=== PATIENT | female | born 1950 | race Caucasian/White ===

== ENCOUNTER → 2025-02-01 | Outpatient (CLI) | payer MEDICARE ==
--- NOTE | 2025-02-02 22:04 | HMCSR ---
APPROVED REPORT Bilateral Lower Extremity Venous Study for DVT., Venous Competence. Indications I87.1, I87.2 Vein Imaging CFV (R): Normal flow, augmentation and compression. No evidence of DVT. 11.0mm 1189ms of reflux. SFJ (R): Normal flow, augmentation and compression. No evidence of DVT. FEM (R): Normal flow, augmentation and compression. No evidence of DVT. POP (R): Normal flow, augmentation and compression. No evidence of DVT. DFV (R): Normal flow, augmentation and compression. No evidence of DVT. PTV (R): Normal flow, augmentation and compression. No evidence of DVT. Peroneals (R): Normal flow, augmentation and compression. No evidence of DVT. CFV (L): Normal flow, augmentation and compression. No evidence of DVT. 7.4mm 100ms of reflux. SFJ (L): Normal flow, augmentation and compression. No evidence of DVT. FEM (L): Normal flow, augmentation and compression. No evidence of DVT. POP (L): Normal flow, augmentation and compression. No evidence of DVT. DFV (L): Normal flow, augmentation and compression. No evidence of DVT. PTV (L): Normal flow, augmentation and compression. No evidence of DVT. Peroneals (L): Normal flow, augmentation and compression. No evidence of DVT. Technologist Impression Deep veins of bilateral lower extremities appear patent and compressible without thrombus. Deep vein reflux seen in the RCFV No superficial venous insufficiency seen at this time. RGSV junction 2.8mm 294ms thigh 2.4mm 0.0ms knee 1.5mm 0.0ms calf 1.5mm 0.0ms RSSV Prox 2.5mm 0.0ms Mid 1.9mm 0.0ms LGSV junction 3.8mm 0.0ms thigh 2.0mm 0.0ms knee 1.6mm 0.0ms calf 1.5mm 0.0ms LSSV Prox 1.3mm 0.0ms Mid 1.4mm 0.0ms Conclusion Deep vein reflux seen in the RCFV No DVT Conclusion Deep vein reflux seen in the RCFV No DVT
--- NOTE | 2025-02-02 22:05 | HMCSR ---
APPROVED REPORT Laterality: Bilateral Indications I87.1, I87.2 VELOCITY AND DOPPLER WAVEFORM ANALYSIS TRANSFER PUMPER (R) 161.5cm/sec, Triphasic, TRANSFER PUMPER (L) 127.3cm/sec, Triphasic, Prof Fem Art. (R) 63.7cm/sec, Biphasic, Prof Fem Art. (L) 74.2cm/sec, Biphasic, Fem Art Prox. (R) 84.3cm/sec, Triphasic, Fem Art Prox. (L) 96.1cm/sec, Biphasic, Fem Art Mid. (R) 88.8cm/sec, Triphasic, Fem Art Mid. (L) 98.4cm/sec, Biphasic, Fem Art Dist (R) 74.5cm/sec, Triphasic, Fem Art Dist. (L) 76.7cm/sec, Biphasic, Pop Art(AK) (R) 58.7cm/sec, Triphasic, Pop Art (AK) (L) 88.1cm/sec, Biphasic, Pop Art (Fossa)(R) 63.6cm/sec, Triphasic, Pop Art (Fossa) (L) 82.4cm/sec, Biphasic, Pop Art(BK) (R) 96.6cm/sec, Triphasic, Pop Art (BK) (L) 79.1cm/sec, Biphasic, CONTINUOUS PROCESS COFFEE ROASTER Dist. (R) 63.6cm/sec, Biphasic, CONTINUOUS PROCESS COFFEE ROASTER Dist. (L) 68.5cm/sec, Biphasic, Per Art Dist. (R) 33.4cm/sec, Biphasic, Per Art Dist. (L) 41.3cm/sec, Biphasic, VISHAL Dist. (R) 49.9cm/sec, Biphasic, VISHAL Dist. (L) 55.5cm/sec, Biphasic, Technologist Impression No evidence of significant arterial insufficiency of bilateral lower extremities. Multiphasic waveforms seen in bilateral lower extremities. Conclusion No evidence of significant arterial insufficiency of bilateral lower extremities. Conclusion No evidence of significant arterial insufficiency of bilateral lower extremities.
== END | disposition home or self-care (01) ==
LOC: SHCH 12:24
PROVIDERS: ATTEND Internal Medicine Cardiovascular Disease
DX: I73.9 Peripheral vascular disease, unspecified (principal); I87.2 Venous insufficiency (chronic) (peripheral); I87.1 Compression of vein; M47.814 Spondylosis without myelopathy or radiculopathy, thoracic region
CPT/HCPCS: 93925; 93970

== ENCOUNTER → 2025-03-15 | Outpatient (CLI) | payer MEDICARE ==
[2025-03-15 12:09] LABS: CREATININE 0.6 mg/dL (0.5-1.0); POTASSIUM 4.6 mmol/L (3.5-5.1)
== END | disposition home or self-care (01) ==
LOC: LAB 10:27
PROVIDERS: ATTEND Internal Medicine Cardiovascular Disease
DX: Z01.812 Encounter for preprocedural laboratory examination (principal); R53.83 Other fatigue
CPT/HCPCS: 36415; 80048

== ENCOUNTER → 2025-03-21 | Outpatient (CLI) | payer MEDICARE ==
[~2025-03-21] MED LIST: IOHEXOL 350 MG/ML 100ML INFUS..BTL IV ONE
--- NOTE | 2025-03-21 10:41 | HMCIMG ---
CT OF THE CHEST WITH CONTRAST- CT Cardiac Angio co-interpretation This is done as part of the CT cardiac angiogram study. The interpretation of the coronary arteries will be done by front attendant in a separate report. History: over-read Comparison: none CT Dose Index (CTDI): 77.90 mGy Dose Length Product (DLP): 493.40 total mGy PROTOCOL: Examination is done at 2.5 millimeter volumetric acquisition after contrast administration with Isovue 370, 100 cc IV, without complications. Photography is done at 5 millimeter thick intervals for the thorax. The examination begins above the heart and therefore the lung apices are incompletely included. The rest of the left lung is included but the right lung is only included up to its middle third. The periphery of the right lung is not included in the study. FINDINGS: The visualized part of the airway is preserved. The bony and soft tissue structures of the chest wall are unremarkable. The aorta is unremarkable. No mediastinal lymphadenopathy is seen. The lung windows demonstrate no worrisome pulmonary nodules, masses or infiltrates. There is no evidence of pulmonary embolism in the visualized lung segments. The upper abdominal views are unremarkable. Impression: No significant abnormalities identified.
--- NOTE | 2025-04-01 07:58 | CARDIOLOGY ---
RAD REPORT: CORNARY CT ANGIO RADIOLOGY REPORT: CORONARY CT ANGIOGRAPHY DATE: April 01, 2025 QUALITY: Excellent CLINICAL HISTORY AND INDICATION: [At risk for CAD ] TECHNIQUE: After obtaining a preliminary esl tutor image, contrast imaging performed on an Aquillon [id number] scanner. A dedicated, limited window, coronary imaging protocol was used, with single breath-hold, retrospective ECG gating, and automated arrhythmia rejection. 100 cc of low osmolar contrast agent: Omnipaque 350 was delivered via a 18-gauge IV catheter in the right antecubital fossa, using a power injector and followed by 60 cc of normal saline bolus as a chaser. Collimated images were reformatted at 0.5 mm intervals, and sent to an offline independent workstation for interpretation, using 3D anatomic reconstructions: Curved multiplanar reconstructions, maximum intensity projections, and multiplanar imaging. No metoprolol was administered prior to scanning due to low baseline heart rate. 0.8 mg SL nitroglycerin was given. CORONARY ARTERY DESCRIPTIONS: The coronary arteries arise in normal position. Left main coronary artery: Normal caliber vessel that bifurcates into the LAD and LCx. No stenosis. Left anterior descending coronary artery: Normal caliber vessel and gives rise to diagonal and septal branches. There is a high risk plaque in the ostial/proximal LAD with positive remodeling and spotty calcification with 50% stenosis. Left circumflex coronary artery: Normal caliber, nondominant and gives rise to a large OM branch. No stenosis. Right coronary artery: Large, dominant vessel giving rise to the PL and PDA branches. No stenosis. CAD-RADs: 3 (moderate stenosis); HRP (high risk plaque), recommend aggressive lipid lowering therapy. Consider functional assessment (PET vs stress vs invasive FFR). Thoracic Aorta: Normal diameter. Ksenia Fleming MD Cardiovascular Disease [facility] KSENIA FLEMING MD April 01, 2025 07:58
== END | disposition home or self-care (01) ==
LOC: RAH 09:02
PROVIDERS: ATTEND Internal Medicine Cardiovascular Disease
DX: I25.10 Atherosclerotic heart disease of native coronary artery without angina pectoris (principal); R07.9 Chest pain, unspecified; R94.31 Abnormal electrocardiogram [ECG] [EKG]
CPT/HCPCS: 75574; Q9967

== ENCOUNTER 2025-05-05 06:53 | Day surgery (SDC) | payer MEDICARE ==
[2025-05-03 09:59] VITALS: BP 175/70; PULSE 73; RESP 17; TEMP 97.9
[2025-05-03 10:07] LABS: BASOPHILS # (AUTO) 0.06 K/uL (0.00-0.20); BASOPHILS % (AUTO) 0.8 % (0.0-5.0); EOSINOPHILS # (AUTO) 0.03 K/uL (0.00-0.70); EOSINOPHILS % (AUTO) 0.4 % (0.0-8.0); HEMATOCRIT 44.7 % (36-48); IMMATURE GRANULOCYTE ABSOLUTE 0.02 K/uL (0-1); LYMPHOCYTES # (AUTO) 1.9 K/uL (1.0-4.8); LYMPHOCYTES % (AUTO) 27.3 % (21.0-51.0); MEAN CORPUSCULAR HEMOGLOBIN 29.8 pg (27.0-33.0); MEAN CORPUSCULAR VOLUME 87.6 fL (79-99); MONOCYTES # (AUTO) 0.6 K/uL (0.1-1.0); MONOCYTES % (AUTO) 8.6 % (3.0-13.0); NEUTROPHILS # (AUTO) 4.4 K/uL (1.8-7.7); NEUTROPHILS % (AUTO) 62.6 % (40.0-77.0); PLATELET COUNT (AUTO) 324 K/uL (130-400); RED CELL DISTRIBUTION WIDTH 14.4 % (11.0-15.5); WHITE BLOOD COUNT (AUTO) 7.1 K/uL (4.8-10.8)
--- NOTE | 2025-05-03 10:10 | EKG ---
[facility] Test Date: 2025-05-03 Test Time: 09:50:56 Pat Name: EUGENIA MAGALLANES Department: [facility] Room: [facility] Gender: F Log Handler: [id number] : 1950 Requested By: ELIE GOINS Order Number: [id number] Reading MD: Ksenia Fleming Measurements Intervals [place] Rate: 72 P: 30 DC: 140 QRS: 63 QRSD: 82 T: 37 QT: 402 QTc: 442 Interpretive Statements Sinus rhythm No previous ECG available for comparison Electronically Signed On 05-05-2025 15:05:20 CDT by Ksenia Fleming Please click the below link to view image of tracing.
[2025-05-03 10:17] LABS: CREATININE 0.6 mg/dL (0.5-1.0); POTASSIUM 4.8 mmol/L (3.5-5.1)
[2025-05-03 10:19] LABS: INR 1.01 (0.85-1.15); PROTHROMBIN TIME 10.7 SEC (9.6-11.6)
[2025-05-03 10:20] LABS: PARTIAL THROMBOPLASTIN TIME 27.9 SEC (26.3-35.5)
[2025-05-03 10:32] LABS: B-TYPE NATRIURETIC PEPTIDE 24 pg/mL (0-100)
--- NOTE | 2025-05-03 12:07 | HMCIMG ---
CHEST 1VW HISTORY: Preop COMPARISON: None FINDINGS: A frontal projection of the chest was obtained. No acute pulmonary infiltrates is seen. The heart is normal in size. Degenerative changes are seen. No evidence of aortic calcification is seen. IMPRESSION: 1. No acute pulmonary infiltrate is seen.
[~2025-05-05] VITALS: Ht 165.1 cm; Wt 54.4 kg
[2025-05-05] VITALS (9 sets, daily range): BP systolic 121–155; BP diastolic 71–85; PULSE 70–82; RESP 11–18; TEMP 97.2–97.7
[~2025-05-05 06:53] MED LIST changes: +BISO5TAB19 PO; +CLOP75TA32 PO; +CREATINE MONO PO; +DOXY25TA41 PO; -IOHEXOL 350 MG/ML 100ML INFUS..BTL IV ONE; +MAGNESIUM CHLORIDE PO; +VIT D3 PO
[2025-05-05] MEDS: 0.9%NACL 1000ML 1,000 ML IV SCH (07:22)
[2025-05-05] MEDS ORDERED: LIDOCAINE HCL 400MG/20ML VIAL ONE (08:32)
[2025-05-05] MEDS ORDERED: HEParin-NS 1,000 UNIT/500 ML 1,000 ML IV ONE (08:32)
[2025-05-05] MEDS ORDERED: HEParin 10,000 UNIT/10ML (1,000 UNIT/ML) VIAL ONE (08:32)
[2025-05-05] MEDS ORDERED: SODIUM BICARB 50MEQ 50ML VIAL 0 ML ONE (08:32)
[2025-05-05] MEDS ORDERED: niCARDIpine 25MG INJ IV ONE (08:32)
[2025-05-05] MEDS ORDERED: NITROGLYCERIN 50MG VIAL ONE (08:32)
[2025-05-05] MEDS ORDERED: FENTanyl CITRate PF 50 MCG/1 ML 2ML VIAL ONE (08:39)
[2025-05-05] MEDS ORDERED: MIDAZOLAM HCL 1 MG/ML 2ML VIAL ONE ×2 (08:39→09:21)
[2025-05-05] MEDS ORDERED: IOHEXOL 350 MG/ML 100ML INFUS..BTL IV ONE (08:55)
--- NOTE | 2025-05-05 09:37 | PRN ---
Left Heart Cath-[place] PROCEDURE: 1. Right common femoral arterial sheath placement. 2. Selective coronary angiogram. 3. Left heart catheterization. 4. Left ventriculogram. 5. Conscious sedation 6. Omni wire pressure assessment of questionable ostial LAD lesion 7. Angio-Seal for closure of arteriotomy site right common femoral artery INDICATIONS: Class [address] angiography with 50% plaque noted at ostial LAD DESCRIPTION OF PROCEDURE: The patient was brought to the catheterization suite and prepped and draped in sterile fashion. An IV was started, if not already in place and both groins were exposed for arterial access. 1% lidocaine was used for local anesthesia and then a micropuncture kit was used to gain access and once free-flowing blood was seen, modified Seldinger technique was utilized to place a 6 Upper Sorbian sheath into the right common femoral artery. Next, preformed JL4 and JR4 Catheters were then used to selectively engage the [place] coronary vessels and multiple hand contrast injections were performed in different views to define the coronary anatomy. Next, a 6 Upper Sorbian angled pigtail catheter was used to cross the aortic valve. Pressure measurements were obtained in the left ventriculogram was in the 30 MILAN position. Next, pullback method was performed. Secondary to abnormal coronary CT angiography and class 2 angina the lesion noted in the ostial LAD via the coronary CT angiogram described a very soft plaque present and it was felt further assessment should be done therefore a JL 3.5 guide catheter was then placed in the left coronary system. Next an Omni wire pressure system was then used and zeroed out and then assessments were made and ratios were noted to be at 0.99 hence a physiologically insignificant lesion. Next a sheath shot was performed after equipment was removed and an Angio-Seal was used for closure of arteriotomy site. No complications occurred. FINDINGS: The left main artery bifurcates into the LAD and left circumflex and is free of any significant disease. The left anterior descending artery has a lesion in the ostial segment she appears to be soft and a pressure wire assessment of this lesion revealed a ratio of 0.99 with the Omni wire. Diagonal branch system is free of significant disease. The left circumflex artery has no significant stenosis present. The obtuse marginal branch system is free of any significant disease. The right coronary artery is a dominant system giving rise to the PDA and RPL. There was no stenosis noted in the right coronary artery or its daughter vessels. LVEDP is normal There was no evidence of aortic stenosis or mitral regurgitation Omni wire pressure assessment revealed a ratio of 0.99. Ejection fraction is at 65%. ELIE ESPITIA MD May 05, 2025 09:37
[2025-05-05] MEDS ORDERED: DEXTROSE 50%-WATER 50 ML DISP.SYRIN IV PRN (10:00)
[2025-05-05] MEDS ORDERED: 0.9%NACL 1000ML 1,000 ML IV SCH (10:00)
[2025-05-05] MEDS ORDERED: GLUCAGON 1MG KIT 1 MG ML IM PRN (10:00)
--- NOTE | 2025-05-05 13:26 | NUR ---
Right Femoral site clean, dry and intact. No evidence of bleeding, bruising or hematoma. Pedal pulses intact. Ate 75% of lunch and has ambulated to bathroom and voided. Now sitting in bedside chair. Denies c/o pain or sob. SR remains with VS wnl. IV fuids infusing per orders to patent PIV. Daughter at bedside appearing supportive. Call light in reach. Reported off i full to CARIE Pagan
--- NOTE | 2025-05-05 13:55 | NUR ---
BOTH PT AND DAUGHTER GIVEN VERBAL AND WRITTEN DISCHARGE INSTRUCTIONS. IV REMOVED SITE ASYMPTOMATIC. PT TAKEN OUT VIA WHEELCHAIR DAUGHTER DRIVING
== END 2025-05-05 14:10 | disposition home or self-care (01) ==
LOC: DAH 06:53
PROVIDERS: ATTEND Internal Medicine Cardiovascular Disease
DX: R94.39 Abnormal result of other cardiovascular function study (principal); I25.118 Atherosclerotic heart disease of native coronary artery with other forms of angina pectoris; I10 Essential (primary) hypertension; E78.5 Hyperlipidemia, unspecified; I87.1 Compression of vein; I87.2 Venous insufficiency (chronic) (peripheral); R53.83 Other fatigue; Z98.890 Other specified postprocedural states; Z86.73 Personal history of transient ischemic attack (TIA), and cerebral infarction without residual deficits; Z79.01 Long term (current) use of anticoagulants; Z79.899 Other long term (current) drug therapy
CPT/HCPCS: 80048; 83880; 85025; 85610; 85730; 36415; 71045; 93005; 93458; 93571; 99156; 99157 ×2; C1887; C1894 ×2; C1760; C1769; Q9965; J3010; J3490 ×2; J1644 ×2; J2250 ×2; Q9967; A4215; A4222; A4221; A4663; A4216; A4606; A4223 ×3; 96360; 96361